=== PATIENT | female | born 1950 | race African-American/Black ===

== ENCOUNTER → 2016-06-22 | Outpatient (CLI) | payer OTHER ==
--- NOTE | ~2016-06-22 | BD1 ---
[facility] A Service of [facility] RADIOLOGY TEXT RESULTS PATIENT: MIESHA ISBELL LOCATION: [facility] : 52 UNIT #: [id number] AGE: [address]: Paolo Agosto MD SEX: F ORDER DR: [id number] [facility] [address] [place], [place] [address] [id number] O MR#: [id number] Acc #: [id number] NAME: MIESHA ISBELL. : 1950 SEX: F STUDY DATE/TIME: 06/22/2016 12:04 UNIT: [facility] ROOM: STUDY DESCRIPTION: BD Dexa Bone Dens 1+ Site Attending Physician: Paolo Agosto M.D. Referring Physician: Paolo Agosto M.D. Ordering Physician: Paolo Agosto M.D. Primary Care Physician: Paolo Agosto M.D. MEDICAL IMAGING REPORT This report is preliminary unless electronic signature is present EXAM DXA scan, 06/22/2016. HISTORY Status post menopause with no hormone replacement therapy. Osteopenia. Arthritis. Hypertension with blood pressure medication for 5 years. Fracture of right first toe in last 10 years. FINDINGS Bone mineral density in the lumbar spine from L1-L4 was 1.671 g/cm2 which is 5.7 standard deviations above the mean when compared to the young adult reference population which is within the range of normal. This is 6.7 standard deviations above the mean when compared to the age-matched population. Bone mineral density in the left femoral neck was 0.641 g/cm2 which is 1.9 standard deviations below the mean when compared to the young adult reference population which is characteristic of osteopenia. This is 0.9 standard deviations below the mean when compared to the age-matched population. IMPRESSION Bone mineral density in the lumbar spine within the range of normal and within the left hip characteristic of osteopenia. Dictated by... Burt Aguirre M.D. THIS IS AN ELECTRONICALLY VERIFIED REPORT Burt Aguirre M.D. at 06/24/2016 8:16 AM KRT/tmw STS. [facility] A Service of [facility] RADIOLOGY TEXT RESULTS PATIENT: [facility]IES[facility]LL [id number] 52 UNIT #: [id number] AGE: [address]: Paolo Agosto MD SEX: F ORDER DR: TD: 06/22/2016 15:11 JOB #: [id number] MEDICAL IMAGING REPORT Page 1 of 1 COPY
== END | disposition home or self-care (01) ==
LOC: CWCC 11:36
DX: M85.80 Other specified disorders of bone density and structure, unspecified site (principal); Z78.0 Asymptomatic menopausal state; M85.88 Other specified disorders of bone density and structure, other site
CPT/HCPCS: 77080